=== PATIENT | female | born 1985 | race Two or more races ===

== ENCOUNTER 2021-10-15 07:49 | Emergency (ER) | payer SELFPAY ==
[~2021-10-15] VITALS: Ht 167.6 cm; Wt 84.4 kg
[2021-10-15 09:04] VITALS: BP 155/95
[2021-10-15] MEDS ORDERED: KETOROLAC TROMETH 60MG/2ML VIAL IM ONE (10:00)
[2021-10-15] MEDS ORDERED: LIDOCAINE 1% HCL (LOCAL ANESTH.) INJ 20ML MDV ONE ×2 (11:46→13:42)
[2021-10-15] MEDS ORDERED: cefTRIAXone SOD 1,000 MG VL IM ONE (13:45)
== END 2021-10-15 13:56 | disposition home or self-care (01) ==
LOC: ER 07:49
DX: N75.1 Abscess of Bartholin's gland (principal); N39.0 Urinary tract infection, site not specified
CPT/HCPCS: 56420; 96372; 99284; J0696; J1885; J2001